=== PATIENT | male | born 1975 | race Caucasian/White ===

== ENCOUNTER 2020-03-31 09:09 | Outpatient (CLI) | payer BC | END 2020-03-31 09:10 | disposition home or self-care (01) | LOC: COV 09:09 | PROVIDERS: ATTEND Family Medicine | DX: R50.9 Fever, unspecified (principal); M79.10 Myalgia, unspecified site; R53.83 Other fatigue; R11.2 Nausea with vomiting, unspecified; Z20.828 Contact with and (suspected) exposure to other viral communicable diseases ==

== ENCOUNTER 2020-05-06 10:28 | Outpatient (CLI) | payer BC | END 2020-05-06 10:29 | disposition home or self-care (01) | LOC: COV 10:28 | PROVIDERS: ATTEND Family Medicine | DX: R05 Cough (principal); Z20.828 Contact with and (suspected) exposure to other viral communicable diseases; R06.02 Shortness of breath; M79.10 Myalgia, unspecified site; R53.83 Other fatigue; R19.7 Diarrhea, unspecified ==